=== PATIENT | female | born 1960 | race Caucasian/White ===

== ENCOUNTER → 2017-12-04 | Outpatient (CLI) | payer OTHER | LOC: FIMAGING 12:28 | PROVIDERS: ATTEND Family Medicine | DX: Z12.31 Encounter for screening mammogram for malignant neoplasm of breast (principal) ==

== ENCOUNTER 2018-03-29 14:33 | Emergency (ER) | payer OTHER ==
[2018-03-29] MEDS ORDERED: ASPIRIN 81 MG CHEWABLE TAB PO ONE (14:44)
[2018-03-29] MEDS ORDERED: LORazepam 2 MG/ML INJ IVP ONE (14:44)
[2018-03-29] MEDS ORDERED: NS 500 ML IV ONE (14:44)
--- NOTE | 2018-03-29 14:51 | EDPHY ---
H & P Time Seen by Provider: 03/29/18 14:40 HPI/ROS: HPI Upper back pain, pain in arm. 57-year-old female by private vehicle. This patient reports that last week she had a cramping like sensation, pain, in her left mid back just below her scapula. She reports that this lasted several hours and then resolved. She reports that today at around 11:00 a.m. This pain came back and has been persistent on some level but intermediate a in intensity and associated with a tightness and cramping sensation in her left arm. Nonsmoker. No history of hypertension, hyperlipidemia, diabetes. She denies a significant family history of coronary artery disease. ROS: Constitutional: No fever, no chills. No weakness. Eyes: No discharge. No changes in vision. ENT: No sore throat. No nasal congestion or rhinorrhea. Respiratory: No cough. No shortness of breath. Cardiac: No chest pain, no palpitations. Gastrointestinal: No abdominal pain, no vomiting, no diarrhea. Genitourinary: No hematuria. No dysuria or increased frequency with urination. Musculoskeletal: As above. No neck pain. No myalgias or arthralgias. Skin: No rashes. Neurological: No headache. No focal weakness or altered sensation. Past medical history: Irregular heart rate. Not on anticoagulation. Hypothyroid, takes Synthroid. Social history: Nonsmoker. No alcohol. Here by herself. Denies any IV drugs or street drugs. Physical Exam: General Appearance: Alert, pleasant, anxious, she is not in distress. This patient is responding to questions appropriately and in full sentences. This patient appears well-hydrated and well-nourished. Eyes: Pupils equal and round no pallor or injection. No lid edema, erythema or injection. Respiratory: There are no retractions, lungs are clear to auscultation with good air movement bilaterally. Cardiovascular: Regular rate and rhythm. No murmur appreciated. Gastrointestinal: Abdomen is soft and nontender, no masses, bowel sounds normal. No focal tenderness at McBurney's point. No Campo sign. Neurological: Motor sensory function is grossly intact. Cranial nerves are normal. Gait is normal. Skin: Warm and dry, no rashes. Musculoskeletal: Neck is supple and nontender. No midline cervical, thoracic, lumbar tenderness on palpation. No CVA tenderness bilaterally. Soft tissues of the left mid back, subscapular involving the patient's area pain are unremarkable. No erythema, warmth, ecchymosis or edema noted. Extremities are symmetrical. All joints range without pain or impingement. Psychiatric: No agitation. No depression. Database: EKG: EKG time is 2:47 p.m.; EKG shows a narrow complex normal sinus rhythm with a ventricular rate of 90. The MS, QRS, QT intervals are within normal limits. There are no ST-T wave changes indicative of ischemic or injury pattern. No evidence of right heart strain. Interpreted by me. Imaging: Chest x-ray AP portable; the cardiac mediastinal silhouette is unremarkable. No evidence of infiltrate or pneumothorax. No acute cardiopulmonary disease process noted. Interpreted by me. Procedures: Emergency department course: Triage vital signs reviewed. She is mildly tachycardic in triage. She is afebrile. Vital signs are otherwise normal. IV was placed. She was placed on a monitor tech. She will be started on IV normal saline and given 500 cc over the next hour. She will be given 0.5 mg of IV Ativan for anxiety. She will be given 324 mg of chewed aspirin. EKG obtained and reviewed by myself. 3:30 p.m., the patient was re-evaluated, she is resting comfortably at this time. She is much more relaxed. She denies any back pain, arm pain or other symptoms. Repeat abdominal exam she is soft, nontender nondistended. No CVA tenderness on palpation. Results of her emergency department workup were discussed with her. Her heart score is low risk. I did discuss observation admission with her. She does not want to be admitted. In my professional opinion she has capacitance to make decisions. She feels comfortable going home. She can have her common pick her up. I discussed cardiology follow-up with her. Return to emergency department precautions were thoroughly reviewed. All of her questions were answered. She was discharged from the emergency department in good condition. Differential Diagnosis: The differential diagnosis on this patient includes but is not limited to anxiety reaction, pulmonary embolism, acute coronary syndrome, aortic dissection. This represents a partial list of diagnoses considered. These considerations are based on history, physical exam, past history, reassessment and diagnostic testing. Smoking Status: Never smoked Constitutional: Initial Vital Signs Temperature (C) 36.8 C 03/29/18 14:34 Heart Rate 106 H 03/29/18 14:34 Respiratory Rate 18 03/29/18 14:34 Blood Pressure 136/86 H 03/29/18 14:34 O2 Sat (%) 95 03/29/18 14:34 O2 Delivery Mode Room Air Allergies/Adverse Reactions: No Known Allergies Allergy (Verified 03/29/18 14:34) Home Medications: Medication Instructions Recorded Aspirin 81mg (*) DAILY 03/22/18 Calcium DAILY 03/22/18 Estradiol DAILY 03/22/18 Herbals/Supplements -Info Only DAILY 03/22/18 LYSINE DAILY 03/22/18 Levothyroxine DAILY 03/22/18 Ranitidine HCl DAILY 03/22/18 Medical Decision Making - Diagnostics Imaging Results: Imaging Impressions Chest X-Ray 03/29/18 14:44 Impression: Clear lungs. No acute process. - Data Points Laboratory Results: Laboratory Results 03/29/18 14:47 03/29/18 14:47 03/29/18 03/29/18 03/29/18 14:50 14:47 14:47 WBC RBC Hgb Hct MCV MCH MCHC RDW Plt Count MPV Neut % (Auto) Lymph % (Auto) Baldwin % (Auto) Eos % (Auto) Baso % (Auto) Nucleat RBC Rel Count Absolute Neuts (auto) Absolute Lymphs (auto) Absolute Monos (auto) Absolute Eos (auto) Absolute Basos (auto) Absolute Nucleated RBC Immature Gran % Immature Gran # PT 12.1 SEC SEC (12.0-15.0) INR 0.87 (0.83-1.16) APTT 29.4 SEC SEC (23.0-38.0) D-Dimer 0.31 ug/mLFEU ug/mLFEU (0.00-0.50) Sodium 138 mEq/L mEq/L (135-145) Potassium 3.5 mEq/L mEq/L (3.5-5.2) Chloride 105 mEq/L mEq/L (97-110) Carbon Dioxide 26 mEq/l mEq/l (22-31) Anion Gap 7 mEq/L mEq/L (6-14) BUN 9 mg/dL mg/dL (7-23) Creatinine 0.8 mg/dL mg/dL (0.6-1.0) Estimated GFR > 60 Glucose 94 mg/dL mg/dL (70-100) Calcium 8.8 mg/dL mg/dL (8.5-10.4) Total Bilirubin 0.3 mg/dL mg/dL (0.1-1.4) Conjugated Bilirubin 0.3 mg/dL mg/dL (0.0-0.5) Unconjugated Bilirubin 0.0 mg/dL mg/dL (0.0-1.1) AST 31 IU/L IU/L (14-46) ALT 40 IU/L IU/L (9-52) Alkaline Phosphatase 87 IU/L IU/L (38-126) POC Troponin I 0.01 ng/mL ng/mL (0.00-0.08) Total Protein 6.5 g/dL g/dL (6.3-8.2) Albumin 4.1 g/dL g/dL (3.5-5.0) Lipase 312 IU/L H IU/L (23-300) TSH Pending 03/29/18 14:47 WBC 8.71 10^3/uL 10^3/uL (3.80-9.50) RBC 5.08 10^6/uL 10^6/uL (4.18-5.33) Hgb 13.5 g/dL g/dL (12.6-16.3) Hct 42.5 % % (38.0-47.0) MCV 83.7 fL fL (81.5-99.8) MCH 26.6 pg L pg (27.9-34.1) MCHC 31.8 g/dL L g/dL (32.4-36.7) RDW 14.8 % % (11.5-15.2) Plt Count 303 10^3/uL 10^3/uL (150-400) MPV 9.8 fL fL (8.7-11.7) Neut % (Auto) 64.9 % % (39.3-74.2) Lymph % (Auto) 23.5 % % (15.0-45.0) Baldwin % (Auto) 6.9 % % (4.5-13.0) Eos % (Auto) 3.4 % % (0.6-7.6) Baso % (Auto) 1.0 % % (0.3-1.7) Nucleat RBC Rel Count 0.0 % % (0.0-0.2) Absolute Neuts (auto) 5.64 10^3/uL 10^3/uL (1.70-6.50) Absolute Lymphs (auto) 2.05 10^3/uL 10^3/uL (1.00-3.00) Absolute Monos (auto) 0.60 10^3/uL 10^3/uL (0.30-0.80) Absolute Eos (auto) 0.30 10^3/uL 10^3/uL (0.03-0.40) Absolute Basos (auto) 0.09 10^3/uL 10^3/uL (0.02-0.10) Absolute Nucleated RBC 0.00 10^3/uL 10^3/uL (0-0.01) Immature Gran % 0.3 % % (0.0-1.1) Immature Gran # 0.03 10^3/uL 10^3/uL (0.00-0.10) PT INR APTT D-Dimer Sodium Potassium Chloride Carbon Dioxide Anion Gap BUN Creatinine Estimated GFR Glucose Calcium Total Bilirubin Conjugated Bilirubin Unconjugated Bilirubin AST ALT Alkaline Phosphatase POC Troponin I Total Protein Albumin Lipase TSH Medications Given: Discontinued Medications Aspirin (Aspirin) 324 mg PO EDNOW ONE Stop: 03/29/18 14:45 Last Admin: 03/29/18 14:55 Dose: 324 mg Sodium Chloride (Ns) 500 mls @ 1,000 mls/hr IV EDNOW ONE PRN Reason: Protocol Stop: 03/29/18 15:13 Last Admin: 03/29/18 14:56 Dose: 500 mls Lorazepam (Ativan Injection) 0.5 mg IVP EDNOW ONE Stop: 03/29/18 14:45 Last Admin: 03/29/18 14:56 Dose: 0.5 mg Point of Care Test Results: Chemistry 03/29/18 14:50 POC Troponin I 0.01 ng/mL ng/mL (0.00-0.08) Departure - Departure Disposition: Home, Routine, Self-Care Clinical Impression: Mid back pain on left side, Left arm pain Condition: Good Instructions: Chest Pain (ED) Additional Instructions: Read and follow provided instructions. Follow-up with Cardiology, early next week for re-evaluation. I have sent them a referral electronically. They should be contacting you on Sunday. If you do not hear from them by Sunday afternoon call their office. Return to the emergency department for worsening return of symptoms, chest pain , shortness of breath, vomiting, worsening back pain or other serious concerns. Referrals: [facility] [Provider Group] - As per Instructions
[2018-03-29 15:03] LABS: PLATELET COUNT 303 10^3/uL (150-400)
[2018-03-29 15:12] LABS: INR 0.87 (0.83-1.16); PROTIME(PATIENT) 12.1 SEC (12.0-15.0)
[2018-03-29 15:51] VITALS: BP 121/90
--- NOTE | 2018-03-29 20:22 | CPEKG ---
Test Reason : OPEN Blood Pressure : / mmHG Vent. Rate : 090 BPM Atrial Rate : 088 BPM P-R Int : 121 ms QRS Dur : 087 ms QT Int : 386 ms P-R-T Axes : -04 020 029 degrees QTc Int : 473 ms Sinus rhythm Confirmed by Jolene Lara ([id number]) on 03/29/2018 8:21:52 PM Referred By: Jolene Lara Confirmed By:Jolene Lara
== END 2018-03-29 15:56 | disposition home or self-care (01) ==
DX: M54.6 Pain in thoracic spine (principal); M79.602 Pain in left arm; R00.0 Tachycardia, unspecified; F41.9 Anxiety disorder, unspecified
CPT/HCPCS: 84484-ER; 96374; J2060

== ENCOUNTER 2018-04-05 05:47 | Day surgery (SDC) | payer OTHER ==
[2018-04-05] MEDS ORDERED: LR 1,000 ML IV ONE (06:02)
[2018-04-05] MEDS ORDERED: PROPOFOL/EMULSION 500 MG/50 ML BOTTLE IV ONE (06:45)
[2018-04-05] MEDS ORDERED: fentaNYL 250 MCG/5 ML INJ ONE (06:49)
[2018-04-05] MEDS ORDERED: BUPIVACAINE 0.5% 30 ML SDV ONE ×2 (06:52→06:58)
[2018-04-05] MEDS ORDERED: CEFAZOLIN 2 GM/DEXTROSE/100 ML BAG IV ONE (07:04)
[2018-04-05] MEDS ORDERED: ceFAZolin 2 GM/DEXTROSE 100 ML IV ONE (07:06)
--- NOTE | 2018-04-05 07:06 | PDHPUP ---
History & Physical Update H&P update statement: This history and physical update is based on an assessment of the patient which was completed after admission or registration (within 24 hours), but prior to the surgery/procedure. H&P update: H&P reviewed & patient examined, no change in patient's condition since H&P completed
[2018-04-05] MEDS ORDERED: MIDAZOLAM 2 MG/2 ML VIAL ONE (07:15)
[2018-04-05] MEDS ORDERED: MIDAZOLAM 2 MG/2 ML VIAL IVP ONE (07:18)
--- NOTE | 2018-04-05 07:21 | PDANEPAE ---
ANE History of Present Illness 57 year old female for right achilles tendon repair. ANE Past Medical History - Cardiovascular History Hx Hypertension: No Hx Arrhythmias: No Hx Chest Pain: No Hx Coronary Artery / Peripheral Vascular Disease: No Hx CHF / Valvular Disease: No Hx Palpitations: No - Pulmonary History Hx COPD: No Hx Asthma/Reactive Airway Disease: No Hx Recent Upper Respiratory Infection: No Hx Oxygen in Use at Home: No Hx Sleep Apnea: No Sleep Apnea Screening Result - Last Documented: Negative - Neurologic History Hx Cerebrovascular Accident: No Hx Seizures: No Hx Dementia: No - Endocrine History Hx Diabetes: No Endocrine History Comment: KENNY - Renal History Hx Renal Disorders: No - Liver History Hx Hepatic Disorders: No - Neurological & Psychiatric Hx Hx Neurological and Psychiatric Disorders: No - Cancer History Hx Cancer: No - Congenital Disorder History Hx Congenital Disorders: No - GI History Hx Gastrointestinal Disorders: Yes Gastrointestinal History Comment: HEARTBURN - Other Health History Other Health History: RT ACHILLES INJURY 2 YEARS AGO. INTERMITTENT USE OF BOOT - Chronic Pain History Chronic Pain: Yes (RT ACHILLES AREA) - Surgical History Prior Surgeries: BSO/APPY. PARTIAL HYSTERECTOMY. RT THYROIDECTOMY (NODULE). LAP GARRISON ANE Review of Systems Review of systems is: negative Review of Systems: - Exercise capacity METS (RN): 4 METS ANE Patient History - Allergies Allergies/Adverse Reactions: No Known Allergies Allergy (Verified 04/05/18 06:10) - Home Medications Home Medications: Aspirin 81mg (*) DAILY 03/22/18 [Last Taken 03/29/18] Calcium DAILY 03/22/18 [Last Taken 04/04/18] Estradiol DAILY 03/22/18 [Last Taken 04/04/18] Herbals/Supplements -Info Only DAILY 03/22/18 [Last Taken 04/04/18] LYSINE DAILY 03/22/18 [Last Taken 04/04/18] Levothyroxine DAILY 03/22/18 [Last Taken 04/05/18] Ranitidine HCl DAILY 03/22/18 [Last Taken 04/04/18] Lorazepam HS 04/05/18 [Last Taken 04/04/18] - NPO status NPO Since - Liquids (Date): 04/04/18 NPO Since - Liquids (Time): 22:00 NPO Since - Solids (Date): 04/04/18 NPO Since - Solids (Time): 20:00 - Smoking Hx Smoking Status: Never smoked ANE Labs/Vital Signs - Vital Signs Blood Pressure: 126/85 Heart Rate: 80 Respiratory Rate: 16 O2 Sat (%): 94 Height: 160.02 cm Weight: 66.224 kg ANE Physical Exam - Airway Neck exam: FROM Mallampati Score: Class 2 Mouth exam: normal dental/mouth exam - Pulmonary Pulmonary: no respiratory distress - Cardiovascular Cardiovascular: regular rate and rhythym - ASA Status ASA Status: I, II ANE Anesthesia Plan Anesthesia Plan: GA w LMA Regional Anesthesia: single shot NB, popliteal SNB
[2018-04-05] MEDS ORDERED: ONDANSETRON 4 MG/2 ML VIAL IVP PRN (07:38)
[2018-04-05] MEDS ORDERED: LABETALOL HCL 5 MG/ML 20 ML MDV IVP PRN (07:38)
[2018-04-05] MEDS ORDERED: MEPERIDINE 25 MG/0.5 ML AMP IVP PRN (07:38)
[2018-04-05] MEDS ORDERED: ALBUTEROL 3 ML DEYVIAL IH PRN (07:38)
[2018-04-05] MEDS ORDERED: PHENYLEPHRINE HCL 100 MCG/ML SYR IVP PRN (07:38)
[2018-04-05] MEDS ORDERED: fentaNYL 100 MCG/2 ML INJ IVP PRN (07:38)
[2018-04-05] MEDS ORDERED: LR 500 ML IV PRN (07:38)
[2018-04-05] MEDS ORDERED: oxyCODONE IR 5 MG TAB PO PRN (07:38)
[2018-04-05] MEDS ORDERED: DEXAMETHASONE 4 MG/ML VIAL IVP PRN (07:38)
[2018-04-05] MEDS ORDERED: NALOXONE HCL 0.4 MG/ML INJ IVP PRN (07:38)
--- NOTE | 2018-04-05 08:27 | POSTOPPROG ---
Post Op Note Date of Operation: 04/05/18 Surgeon: Germán Cantrell [employer] Salesperson: Kirk Anesthesiologist: Susanna Anesthesia: GET(General Endotracheal) Pre-op Diagnosis: R achilles debridement Post-op Diagnosis: same Indication: above Procedure: R achilles debridement and repair Inf/Abcess present in the surg proc area at time of surgery?: No EBL: Minimal
--- NOTE | 2018-04-05 08:35 | POSTANESTH ---
Post Anesthetic Evaluation Cardiovascular Status: Normal, Stable Respiratory Status: Normal, Stable Level of Consciousness/Mental Status: Mildly Sleepy, Arousable, Moderately Sleepy Pain Control: Adequate, Prn Tx Ordered Nausea/Vomiting Control: Adequate, Prn Tx Ordered Complications Possibly Related to Anesthesia: None Noted
--- NOTE | 2018-04-05 09:05 | GOP ---
[f rep st] OPERATIVE REPORT DATE OF OPERATION: 04/05/2018 SURGEON: Germán Cantrell MD CABLE ARMORER: Milton Bradley SA. ANESTHESIA: General with single-shot popliteal block for postop pain control. PREOPERATIVE DIAGNOSIS: Right Achilles tendinitis, tendinosis. POSTOPERATIVE DIAGNOSIS: Right Achilles tendinitis, tendinosis. PROCEDURE PERFORMED: Right Achilles tendon debridement with secondary repair. FINDINGS: SPECIMENS: None. ESTIMATED BLOOD LOSS: 5 mL. INDICATIONS: This is a female with significant refractory Achilles tendinosis. She tried and failed conservative management including physical therapy. The MRI showed significant tendinosis. We disc ussed operative intervention for debridement, repair, and she elected to proceed. Informed consent o btained. All questions answered. She was marked preoperatively. DESCRIPTION OF PROCEDURE: She was taken to the operative suite, sterilely prepped and draped in the normal fashion. Time-out was performed verifying site, side, location and agreed upon by all members of the team. We discussed risks of tendon rupture, tendon thickening, continued pain, recurrence, wo und complications, blood clot, infection, and she elected to proceed. After a time-out, the leg was exsanguinated and the tourniquet was inflated. I made an incision just medial to the Achilles tendon and dissected down to the tendon, protecting neurovascular structures. I opened the tendon with a l ongitudinal incision and ellipsed out the inner core of degenerative tissue based on location on her MRI. I sent this to Pathology for permanent specimen. I then felt I had adequately debrided the ten don and scraped this with a knife to help stimulate healing. Worked proximally and distally to debri de more tendon. I then closed this with #1 Vicryl inside the tendon bringing the tendon together to make this thinner. Then an 0 Vicryl in the outside of the tendon. The tendon was in good continuity and was strong with testing. I closed the skin with 2-0 Vicryl, 3-0 Quill and Dermabond. She was p laced in a splint and sterile dressing, and taken to PACU in stable condition. COMPLICATIONS: None. DRAINS: None. CONDITION: Stable. /[id number]/MODL
[2018-04-05] MEDS ORDERED: oxyCODONE IR 5 MG TAB ONE (09:32)
[2018-04-05 09:40] VITALS: BP 98/87
== END 2018-04-05 10:40 | disposition home or self-care (01) ==
LOC: FSGY 05:47
PROVIDERS: ATTEND Orthopaedic Surgery
DX: M76.61 Achilles tendinitis, right leg (principal); K21.9 Gastro-esophageal reflux disease without esophagitis; E06.3 Autoimmune thyroiditis; Z82.49 Family history of ischemic heart disease and other diseases of the circulatory system
CPT/HCPCS: J0690; J2250; J2704; J3010